=== PATIENT | female | born 1930 | race Caucasian/White ===

== ENCOUNTER 2017-07-03 16:41 | Emergency (ER) | payer MEDICARE ==
[2016-02-10 12:51] VITALS: Ht 154.9 cm; Wt 56.9 kg
[~2017-07-03] VITALS: Ht 154.9 cm; Wt 56.9 kg
[~2017-07-03 16:41] MED LIST: ACET-2031 PO; ALP5 PO; ASPI-757 PO; ASPI81TA86 PO; ATOR20TA22 PO; ATOR40TA24 PO; BEN100 PO; BISA-229 PO; BISA-236 RC; BISA-71 PO; BISM525O70 PO; CALC-521 PO; CAR350 PO; CIP500 PO; CIPR-344 PO; CRAN1TAB10 PO; CRANBERRY TAB; DEXT15DR19 OP; DEXT1DRO15 OP; DIPH-464 PO; DOCU-202 PO; DONE10TA89 PO; DONE23TA3 PO; DUL30 PO; ESC10 PO; FERR-1 PO; FLU20 PO; GUAI-177 PO; GUAI-178 PO; HYDR-2946 PO; HYDR25SU51 RC; IRON; LEVO-85 PO; LEVO250S7 PO; LOPE-95 PO; LOR5/325 PO; LORA-630 PO; MAG-66 PO; MENT1LOZ MM; METO25TA23 PO; METXL50 PO; MOM PO; MOVE FREE; MULT-820 PO; MULTI VITAMIN; NA P133E21 RC; NITR-1 PO; NITR-105 PO; OMEP-137 PO; ONDA4TAB PO; PAN40 PO; PER PO; PHEN-529 PO; PHEN200T32 PO; POT10 PO; TRA50 PO; VALS1TAB61 PO; VALS1TAB63 PO; VALS80TA7 PO; [UNRECOGNIZED DRUG - CODE] PO
[2017-07-03] MEDS ORDERED: ALBUTEROL/IPRATROPIUM 3 ML NEB NEB ONE (17:00)
--- NOTE | 2017-07-03 17:00 | ER Report ---
History and Physical Time Seen By MD: 16:50 Hx. of Stated Complaint: pt has cough for a few days, some wheezing. HPI/ROS CHIEF COMPLAINT: Cough, wheezing HISTORY OF PRESENT ILLNESS: 86-year-old female patient presents to emergency room with complaint of cough, wheezing. [facility] She states that today she just was not feeling up to going out and socializing with her fellow residents. She states that she had a little bit of a cough. She has not had much of an appetite. The nurse there did listen to her lungs and noted that she sounded coarse and wheezy and wanted her to be evaluated further. She did call and spoke with the patient's daughter who brought her into the emergency room. Patient denies having any fevers, chills, nausea, vomiting or diarrhea. Patient denies having any body aches. She states that she is not taking any medication for this. She states that she has not felt 100% but is not feeling too bad. REVIEW OF SYSTEMS: Respiratory: As noted above Cardiovascular: No chest pain, no palpitations. Gastrointestinal: No vomiting, no abdominal pain. Musculoskeletal: No back pain. Allergies: Coded Allergies: Penicillins (Verified Allergy, Intermediate, ITCHING, 02/03/17) codeine (Verified Allergy, Intermediate, RASH, 02/03/17) Sulfa (Sulfonamide Antibiotics) (Verified Allergy, Unknown, RASH, FEVER, ) Home Meds Active Scripts Oseltamivir Phosphate (TAMIFLU) 75 Mg Cap, 75 MG PO BID, #9 CAP Prov:YUSEF BROWNE 07/03/17 Nitrofurantoin Monohyd/M-Cryst (MACROBID 100 MG CAPSULE) 100 Mg Capsule, 100 MG PO BID, #12 CAPSULE Prov:YUSEF BROWNE 07/03/17 Nitrofurantoin Macrocrystal (NITROFURANTOIN) 100 Mg Capsule, 100 MG PO BID for 5 Days, CAPSULE Prov:SHAKA MARRERO MD 12/22/16 Metoprolol Succinate (METOPROLOL SUCCINATE) 25 Mg Tab.er.24h, 12.5 MG PO BID, # 60 Prov:TAM MARTE MD 02/13/16 Levofloxacin 500 Mg Tab (LEVAQUIN 500 MG TAB) 500 Mg Tablet, 250 MG PO QAM, #3 Prov:TAM MARTE MD 02/13/16 Aspirin (ASPIRIN EC) 81 Mg Tablet., 81 MG PO QDAY, #0 Prov:TAM MARTE MD 02/13/16 Reported Medications Dextran 70/Hypromellose (ARTIFICIAL TEARS EYE DROPS) 15 Ml Drops, OP Use in eyes as needed for complaints of dry or irritated eyes. 03/08/15 Omeprazole (OMEPRAZOLE) 20 Mg Tablet.dr, 20 MG PO QDAY, TAB 03/04/15 Acetaminophen (ACETAMINOPHEN) 325 Mg Tablet, 325 - 650 MG PO Q4H Y 12/30/12 Atorvastatin Calcium (LIPITOR) 40 Mg Tablet, 1 TAB PO QDAY TAKE ONE TABLET BY MOUTH ONCE A DAY AT BED TIME 12/30/12 Fluoxetine Hcl (Prozac) 20 Mg Cap, PO DAILY, 0 Refills 10/05/12 Multivitamins (Multivitamin) 1 Tab Tablet, 1 TAB PO QDAY, 0 Refills 12/03/10 Past Medical/Surgical History Patient has a past medical history of migraines, hypertension, hyperlipidemia, cholecystitis, frequent UTI, arthritis, great toe fracture, hypothyroidism, depression. Patient has a surgical history of cataract surgery, tonsillectomy, cyst removed from back, hip replacement, back surgery, bladder surgery, cholecystectomy, appendectomy, abdominal surgery, pacemaker placed. Patient has a family medical history of cancer, CAD, stroke, diabetes. Reviewed Nurses Notes: Yes Hx Smoking: No Exposure to Second Hand Smoke?: No Hx Substance Use Disorder: No Hx Alcohol Use: No Constitutional Vital Sign - Last 24 Hours 07/03/17 07/03/17 07/03/17 07/03/17 16:50 17:00 17:16 17:16 Temp 97.9 Pulse 60 60 60 Resp 18 B/P (MAP) 154/90 150/77 (101) Pulse Ox 93 96 92 O2 Delivery Room Air Room Air 07/03/17 07/03/17 07/03/17 07/03/17 17:24 17:30 17:35 17:46 Pulse 60 ??? B/P (MAP) 123/79 (94) 112/68 (83) 07/03/17 07/03/17 18:00 18:25 Pulse 60 60 Resp 21 18 B/P (MAP) 128/61 (83) 108/58 (75) Pulse Ox 90 90 Physical Exam General Appearance: The patient is alert, has no immediate need for airway protection and no current signs of toxicity. Respiratory: Chest is non tender, lungs are coarse to auscultation. Cardiac: regular rate and rhythm Gastrointestinal: Abdomen is soft and non tender, no masses, bowel sounds normal. Musculoskeletal: Neck: Neck is supple and non tender. Extremities have full range of motion and are non tender. Skin: No rashes or lesions. DIFFERENTIAL DIAGNOSIS: After history and physical exam differential diagnosis was considered for pneumonia, bronchitis, influenza, urinary tract infection, PR. Medical Decision Making Data Points Result Diagram: 07/03/17 1715 07/03/17 1715 Laboratory Hematology Test 07/03/17 16:42 07/03/17 17:02 07/03/17 17:15 Urine Color Yellow Urine Clarity Slightly-cloudy Urine pH 5.0 pH (4.8-9.5) Urine Specific [place] 1.010 Urine Protein Negative mg/dL (NEGATIVE) Urine Glucose (UA) Negative mg/dL (NEGATIVE) Urine Ketones Negative mg/dL (NEGATIVE) Urine Blood Negative (NEGATIVE) Urine Nitrite Positive (NEGATIVE) Urine Bilirubin Negative (NEGATIVE) Urine Urobilinogen Negative mg/dL (0.2-1.9) Urine Leukocyte Esterase Moderate (NEGATIVE) Urine RBC 1 /HPF (0-2/HPF) Urine WBC 61 /HPF (0-5/HPF) Urine Squamous Epithelial Cells Many /LPF (</=FEW) Urine Amorphous Crystals Few /HPF Urine Bacteria Few /HPF (NONE-FEW) Urine Mucus None /HPF (NONE-FEW) Influenza Virus Type A (PCR) Negative (NEGATIVE) Influenza Virus Type B (PCR) Positive (NEGATIVE) Red Blood Count 4.22 M/uL (4.17-5.56) Mean Corpuscular Volume 87.6 fL (80.0-96.0) Mean Corpuscular Hemoglobin 30.6 pg (26.0-33.0) Mean Corpuscular Hemoglobin Concent 34.9 g/dL (32.0-36.0) Red Cell Distribution Width 14.2 % (11.5-14.5) Mean Platelet Volume 7.8 fL (7.2-11.1) Neutrophils (%) (Auto) 57.9 % (39.4-72.5) Lymphocytes (%) (Auto) 29.5 % (17.6-49.6) Monocytes (%) (Auto) 11.9 % (4.1-12.4) Eosinophils (%) (Auto) 0.3 % (0.4-6.7) Basophils (%) (Auto) 0.4 % (0.3-1.4) Nucleated RBC Relative Count (auto) 0.2 /100WBC Neutrophils # (Auto) 2.4 K/uL (2.0-7.4) Lymphocytes # (Auto) 1.2 K/uL (1.3-3.6) Monocytes # (Auto) 0.5 K/uL (0.3-1.0) Eosinophils # (Auto) 0.0 K/uL (0.0-0.5) Basophils # (Auto) 0.0 K/uL (0.0-0.1) Nucleated RBC Absolute Count (auto) 0.01 K/uL Sodium Level 127 mmol/L (137-145) Potassium Level 4.4 mmol/L (3.5-5.0) Chloride Level 95 mmol/L (98-107) Carbon Dioxide Level 22 mmol/L (22-31) Blood Urea Nitrogen 20 mg/dl (7-18) Creatinine 1.20 mg/dl (0.52-1.04) Glomerular Filtration Rate Calc 42.4 Random Glucose 106 mg/dl (75-110) Calcium Level 8.3 mg/dl (8.4-10.2) Total Bilirubin 0.6 mg/dl (0.2-1.3) Aspartate Amino Transf (AST/SGOT) 28 U/L (0-35) Alanine Aminotransferase (ALT/SGPT) 49 U/L (0-56) Alkaline Phosphatase 130 U/L (0-126) Troponin I < 0.012 ng/ml B-Type Natriuretic Peptide 127 pg/ml (0-100) Total Protein 6.4 gm/dl (6.3-8.2) Albumin 3.4 g/dl (3.5-5.0) Chemistry Test 07/03/17 16:42 07/03/17 17:02 07/03/17 17:15 Urine Color Yellow Urine Clarity Slightly-cloudy Urine pH 5.0 pH (4.8-9.5) Urine Specific [place] 1.010 Urine Protein Negative mg/dL (NEGATIVE) Urine Glucose (UA) Negative mg/dL (NEGATIVE) Urine Ketones Negative mg/dL (NEGATIVE) Urine Blood Negative (NEGATIVE) Urine Nitrite Positive (NEGATIVE) Urine Bilirubin Negative (NEGATIVE) Urine Urobilinogen Negative mg/dL (0.2-1.9) Urine Leukocyte Esterase Moderate (NEGATIVE) Urine RBC 1 /HPF (0-2/HPF) Urine WBC 61 /HPF (0-5/HPF) Urine Squamous Epithelial Cells Many /LPF (</=FEW) Urine Amorphous Crystals Few /HPF Urine Bacteria Few /HPF (NONE-FEW) Urine Mucus None /HPF (NONE-FEW) Influenza Virus Type A (PCR) Negative (NEGATIVE) Influenza Virus Type B (PCR) Positive (NEGATIVE) White Blood Count 4.1 k/uL (4.5-11.0) Red Blood Count 4.22 M/uL (4.17-5.56) Hemoglobin 12.9 g/dL (12.0-16.0) Hematocrit 37.0 % (34.0-47.0) Mean Corpuscular Volume 87.6 fL (80.0-96.0) Mean Corpuscular Hemoglobin 30.6 pg (26.0-33.0) Mean Corpuscular Hemoglobin Concent 34.9 g/dL (32.0-36.0) Red Cell Distribution Width 14.2 % (11.5-14.5) Platelet Count 152 K/uL (150-450) Mean Platelet Volume 7.8 fL (7.2-11.1) Neutrophils (%) (Auto) 57.9 % (39.4-72.5) Lymphocytes (%) (Auto) 29.5 % (17.6-49.6) Monocytes (%) (Auto) 11.9 % (4.1-12.4) Eosinophils (%) (Auto) 0.3 % (0.4-6.7) Basophils (%) (Auto) 0.4 % (0.3-1.4) Nucleated RBC Relative Count (auto) 0.2 /100WBC Neutrophils # (Auto) 2.4 K/uL (2.0-7.4) Lymphocytes # (Auto) 1.2 K/uL (1.3-3.6) Monocytes # (Auto) 0.5 K/uL (0.3-1.0) Eosinophils # (Auto) 0.0 K/uL (0.0-0.5) Basophils # (Auto) 0.0 K/uL (0.0-0.1) Nucleated RBC Absolute Count (auto) 0.01 K/uL Glomerular Filtration Rate Calc 42.4 Calcium Level 8.3 mg/dl (8.4-10.2) Total Bilirubin 0.6 mg/dl (0.2-1.3) Aspartate Amino Transf (AST/SGOT) 28 U/L (0-35) Alanine Aminotransferase (ALT/SGPT) 49 U/L (0-56) Alkaline Phosphatase 130 U/L (0-126) Troponin I < 0.012 ng/ml B-Type Natriuretic Peptide 127 pg/ml (0-100) Total Protein 6.4 gm/dl (6.3-8.2) Albumin 3.4 g/dl (3.5-5.0) Urinalysis Test 07/03/17 16:42 Urine Color Yellow Urine Clarity Slightly-cloudy Urine pH 5.0 pH (4.8-9.5) Urine Specific [place] 1.010 Urine Protein Negative mg/dL (NEGATIVE) Urine Glucose (UA) Negative mg/dL (NEGATIVE) Urine Ketones Negative mg/dL (NEGATIVE) Urine Blood Negative (NEGATIVE) Urine Nitrite Positive (NEGATIVE) Urine Bilirubin Negative (NEGATIVE) Urine Urobilinogen Negative mg/dL (0.2-1.9) Urine Leukocyte Esterase Moderate (NEGATIVE) Urine RBC 1 /HPF (0-2/HPF) Urine WBC 61 /HPF (0-5/HPF) Urine Squamous Epithelial Cells Many /LPF (</=FEW) Urine Amorphous Crystals Few /HPF Urine Bacteria Few /HPF (NONE-FEW) Urine Mucus None /HPF (NONE-FEW) EKG/Imaging EKG Interpretation 12 lead EKG: Rhythm: Electronic atrial pacemaker with a ventricular rate of 60 bpm [place]: normal QRS: normal ST segments: Nonspecific T-wave abnormality Imaging Examination: CHEST PA AND LAT Comparison: 02/03/2017 History: Respiratory distress. 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 Cardiac and hilar contour is prominent but unchanged. Pacemaker as before. Unchanged large hiatal hernia. No new or enlarging consolidation or nodule. No pneumothorax, edema, or effusion. No evidence of peribronchial inflammation. Osseous structures are intact. IMPRESSION: 1. No evidence of acute cardiopulmonary disease. 2. Large hiatal hernia. Report Dictated By: Faisal Sanchez MD at 07/03/2017 5:57 PM Report E-Signed By: Faisal Sanchez MD at 07/03/2017 5:59 PM ED Course/Re-evaluation ED Course Patient was admitted to exam room, history and physical obtained. Differential diagnoses were considered. On examination lungs are coarse to auscultation. A CBC, CMP, troponin, EKG, chest x-ray, influenza screen were done. Patient had normal white count, troponin was negative, large clots were unremarkable. A urinalysis was obtained which showed positive leukocyte esterase and positive nitrites. Patient also had a positive flu screen. Chest x-ray was negative. I discussed the findings with the patient and her daughter. We will go ahead and treat her with Macrobid for urinary tract infection and Tamiflu for her flu. She is to follow-up with her primary care provider in the next week. Patient and her daughter verbalized understanding and agreement with plan. Decision to Disposition Date: Jul 03, 2017 Decision to Disposition Time: 18:00 Depart Departure Latest Vital Signs Vital Signs Date Time Temp Pulse Resp B/P (MAP) Pulse Ox O2 Delivery O2 Flow Rate FiO2 07/03/17 18:25 60 18 108/58 (75) 90 07/03/17 17:16 Room Air 07/03/17 16:50 97.9 Impression: Primary Impression: Influenza B Additional Impression: UTI (urinary tract infection) Condition: Improved Disposition: HOME OR SELF-CARE Referrals: HARSH PLUMMER DO (PCP) New Scripts Oseltamivir Phosphate (TAMIFLU) 75 Mg Cap 75 MG PO BID, #9 CAP Prov: YUSEF BROWNE 07/03/17 Nitrofurantoin Monohyd/M-Cryst (MACROBID 100 MG CAPSULE) 100 Mg Capsule 100 MG PO BID, #12 CAPSULE Prov: YUSEF BROWNE 07/03/17 Patient Instructions: Influenza (ED) Additional Instructions: Increase fluid intake. Get plenty of rest. Return to the ER if condition worsens. Take Tylenol or Ibuprofen as needed. We will culture the urine and will call if we need to change antibiotics. Take medication as directed. Problem Qualifiers Additional Impression: UTI (urinary tract infection) Urinary tract infection type: acute cystitis Hematuria presence: without hematuria Qualified Codes: N30.00 - Acute cystitis without hematuria YUSEF BROWNE Jul 03, 2017 17:00
[2017-07-03 17:25] LABS: PLATELET COUNT, AUTOMATED 152 K/uL (150-450)
[2017-07-03] MEDS ORDERED: NITR-105 PO (18:02)
[2017-07-03] MEDS ORDERED: OSE75 PO (18:02)
--- NOTE | 2017-07-03 18:04 | RADIOLOGY IMAGING REPORT ---
FACILITY: [facility] [place] PATIENT NAME: Melany Ordoñez : 1930 MR: [id number] V: [id number] EXAM DATE: ORDERING PHYSICIAN: YUSEF BROWNE TECHNOLOGIST: Location: Patient: Melany Ordoñez : 1930 Visit/Account:[id number] Date of Sevice: 07/03/2017 Examination: CHEST PA AND LAT Comparison: 02/03/2017 History: Respiratory distress. 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 Cardiac and hilar contour is prominent but uncha nged. Pacemaker as before. Unchanged large hiatal hernia. No new or enlarging consolidation or nodule . No pneumothorax, edema, or effusion. No evidence of peribronchial inflammation. Osseous structures are intact. IMPRESSION: 1. No evidence of acute cardiopulmonary disease. 2. Large hiatal hernia. Report Dictated By: Faisal Sanchez MD at 07/03/2017 5:57 PM Report E-Signed By: Faisal Sanchez MD at 07/03/2017 5:59 PM WSN:[id number]
[2017-07-03] MEDS ORDERED: NITROFURANTOIN MONO 100 MG PO ONE (18:15)
[2017-07-03] MEDS ORDERED: OSELTAMIVIR PHOS 75 MG CAP PO ONE (18:15)
[2017-07-03 18:25] VITALS: BP 108/58
--- NOTE | 2017-07-04 09:33 | EKG ---
FACILITY: [facility] PATIENT NAME: MIN GALEANA : [id number] MR: [id number] V: [id number] EXAM DATE: ORDERING PHYSICIAN: YUSEF BROWNE TECHNOLOGIST: BRIDGET Tobar Reason : COUGH Blood Pressure : / mmHG Vent. Rate : 060 BPM Atrial Rate : 060 BPM P-R Int : 202 ms QRS Dur : 072 ms QT Int : 438 ms P-R-T Axes : 105 047 074 degrees QTc Int : 438 ms Electronic atrial pacemaker Nonspecific T wave abnormality Abnormal ECG When compared with ECG of 03-FEB-2017 03:52, Electronic atrial pacemaker has replaced Sinus rhythm Questionable change in QRS axis Nonspecific T wave abnormality, worse in Lateral leads Confirmed by ROMAN MARQUEZ ([id number]) on 07/04/2017 11:54:37 AM Referred By: MAURO Confirmed By:ROMAN MARQUEZ
== END 2017-07-03 18:35 | disposition home or self-care (01) ==
LOC: ER 16:58
DX: J11.1 Influenza due to unidentified influenza virus with other respiratory manifestations (principal); N30.00 Acute cystitis without hematuria
CPT/HCPCS: 71046; 81001; 83880; 84484; 85025; 87077; 87088; 87186; 87502; 93005; 94640; 99284; A9270; J7620; 82040; 82247; 82310; 82374; 82435; 82565; 82947; 84075; 84132; 84155; 84295; 84450; 84460; 84520

== ENCOUNTER → 2017-10-26 | Outpatient (REF) | payer MEDICARE ==
[2016-02-10 12:51] VITALS: BMI 22.8
[~2017-10-26] MED LIST changes: +OSE75 PO
== END ==
LOC: ZZSENDIN 19:08
PROVIDERS: ATTEND Urology
DX: N39.0 Urinary tract infection, site not specified (principal); B96.1 Klebsiella pneumoniae [K. pneumoniae] as the cause of diseases classified elsewhere
CPT/HCPCS: 87077; 87088; 87186

== ENCOUNTER → 2018-03-07 | Outpatient (CLI) | payer MEDICARE ==
[2016-02-10 12:51] VITALS: BMI 22.8
[~2018-03-07] MED LIST changes: -VALS80TA7 PO; +VALS80TA8 PO
== END ==
LOC: ZZSPRING 00:53
PROVIDERS: ATTEND Family Medicine
DX: E78.5 Hyperlipidemia, unspecified (principal); D50.9 Iron deficiency anemia, unspecified
CPT/HCPCS: 36415; 82040; 82247; 82310; 82374; 82435; 82465; 82565; 82947; 83718; 84075; 84132; 84155; 84295; 84450; 84460; 84478; 84520; 85027

== ENCOUNTER → 2018-07-11 | Outpatient (REF) | payer MEDICARE ==
[2016-02-10 12:51] VITALS: BMI 22.8
== END ==
LOC: ZZSPRING 20:11
PROVIDERS: ATTEND Family Medicine
DX: R50.9 Fever, unspecified (principal); R05 Cough
CPT/HCPCS: 87502